=== PATIENT | male | born 2000 | race Asian ===

== ENCOUNTER 2021-10-12 08:48 | Emergency (ER) | payer OTHER ==
[~2021-10-12] VITALS: Ht 177.8 cm; Wt 77.3 kg
[2021-10-12 08:54] VITALS: BP 154/64; TEMP 98.1
[2021-10-12] MEDS ORDERED: CRUTCHES MC (09:16)
[2021-10-12 09:24] VITALS: PULSE 54
== END 2021-10-12 09:24 | disposition home or self-care (01) ==
LOC: COL.ER 08:48
DX: S83.92XA Sprain of unspecified site of left knee, initial encounter (principal); X58.XXXA Exposure to other specified factors, initial encounter; Y93.67 Activity, basketball